=== PATIENT | male | born 1955 | race Caucasian/White ===

== ENCOUNTER 2022-06-07 01:14 | Emergency (ER) | payer OTHER ==
[~2022-06-07 01:14] MED LIST: ASPIRIN 325MG325 MG PO; AVODART0.5 MG PO; CARAFATE1 GM PO; COLCRYS0.6 MG PO; DITROPAN XL5 MG PO; FLOMAX0.4 MG PO; IBUPROFEN600 MG PO; NEURONTIN 400400 MG PO; NITROSTAT0.4 MG SL; NORCO 7.5-3251 EACH PO; NORVASC 5 MG TAB5 MG PO; PERCOCET 7.5-31 EACH PO; PRINIVIL20 MG PO; PROTONIX40 MG PO; ZANAFLEX4 MG PO; ZANTAC150 MG PO; ZYLOPRIM300 MG PO
[2022-06-07] MEDS ORDERED: ZOFRAN ODT 4 MG4 MG PO (03:37)
== END 2022-06-07 03:43 | disposition home or self-care (01) ==
LOC: ER1 01:14
DX: R07.0 Pain in throat (principal); R13.10 Dysphagia, unspecified; K21.9 Gastro-esophageal reflux disease without esophagitis; I10 Essential (primary) hypertension; Z88.0 Allergy status to penicillin
CPT/HCPCS: 99283